=== PATIENT | male | born 1945 | race American Indian/Alaskan Native ===

== ENCOUNTER 2017-12-01 19:06 | Emergency (ER) | payer BC ==
[2017-12-01 19:52] VITALS: BP 129/84
--- NOTE | 2017-12-01 21:55 | XRay Report ---
FINAL REPORT EXAM: XR FOOT 2V LT HISTORY: pain in the left foot TECHNIQUE: AP and lateral portable views of the left foot PRIORS: None. FINDINGS: There is no evidence for acute fracture or dislocation. Soft tissue swelling over the lateral aspect of the 5th metatarsal is seen. No radiopaque foreign bodies are seen. Bony mineralization is normal. Joint spaces are maintained. Large bony spurs off the plantar and posterior aspects of the calcaneus is seen. Spurring off the dorsum of the tarsal bones is also noted. IMPRESSION: No acute bony abnormality noted. Soft tissue swelling is present laterally over the 5th metatarsal.
[2017-12-02] MEDS ORDERED: DECADRON IM ONE (03:40)
[2017-12-02] MEDS ORDERED: TORADOL IM ONE (03:40)
--- NOTE | 2017-12-02 03:42 | Emergency Department Report ---
HPI - General Chief Complaint: Extremity Injury, Lower Time Seen by Provider: 12/02/17 03:41 - HPI HPI: Patient reports that he's been having in got flareup for over a week now. He reports therapy to his left great toe and heel. He said he went to the urgent care 1 week ago and they placed him on pulseless seen and he had relief. He said they also put him on indomethacin but his primary care physician told him that he should not take that because he is diabetic and with high blood pressure. He said that gout got better and then E a 10 shrimp last night and got flared up again. Patient's here report pain to left great toe 9 out of 10 and throbbing. Reports redness and swelling. Patient said his doctor told him he can have a little seafood but he said that he doesn't know how much a little is. Pain is worse with movement and touch better with resting. He said he took some Motrin that did not relieve his pain. Denies any trauma to site. Patient said he has an appointment with his primary care physician on 2017. Denies any fever or chills. ED Past Medical Hx - Past Medical History Previous Medical History?: Yes Hx Hypertension: Yes Hx Diabetes: Yes Hx Arthritis: Yes Additional medical history: GOUT - Surgical History Past Surgical History?: No - Family History Family history: hypertension - Social History Smoking Status: Former Smoker Substance Use Type: None - Medications Home Medications: Home Medications Medication Instructions Recorded Confirmed Last Taken Type Colchicine [Colcrys] 0.6 mg PO BID PRN #10 tab 12/02/17 Unknown Rx predniSONE [Deltasone] 20 mg PO QAM 3 Days #3 tab 12/02/17 Unknown Rx ED Review of Systems ROS: Stated complaint: GOUT IN L FOOT Other details as noted in HPI Comment: All other systems reviewed and negative Constitutional: no symptoms reported Respiratory: no symptoms reported Cardiovascular: denies: chest pain, palpitations, dyspnea on exertion, edema, syncope, paroxysmal nocturnal dyspnea Gastrointestinal: denies: abdominal pain, nausea, vomiting Genitourinary: denies: dysuria, hematuria Musculoskeletal: joint swelling, arthralgia. denies: back pain, myalgia Skin: other (redness and swelling to the left great toe). denies: rash Neurological: denies: headache, weakness, numbness, paresthesias, confusion, abnormal gait, vertigo Physical Exam - Physical Exam Vital Signs: Vital Signs 12/01/17 19:47 Temperature 98.3 F Pulse Rate 93 H Respiratory 18 Rate Blood Pressure 129/84 O2 Sat by Pulse 96 Oximetry General: 72-year-old male well-nourished well-developed and nontoxic in appearance. Physical Exam: Head: Normocephalic, atraumatic, no abrasion, no bruising and no contusion. Eyes: Biateral pupils equal and reactive to light, bilateral EOM intact.. Bilateral conjunctival and sclera without injection, normal accommodation. No nystagmus Mouth: Moist, no pharyngeal exudate or erythema. No peritonsillar abscesses. Uvula is midline and oral airways patent. Neck: Supple, No Cervical adenopathy, full range of motion and no C-spine tenderness. No swelling or tracheal deviation normal reflexes Cardiovascular: S1, S2. Regular rate and rhythm. No murmur. Capillary refill is less then 3 seconds. Lungs: Clear to auscultate bilaterally. No rhonchi, wheezes or rales. No chest wall tenderness. No chest contusion. No bruising to chest. Abdomen: Non-tender to palpate in all quadrants, no guarding or rebound tenderness, positive bowel sounds in all quadrants. No CVA tenderness. No hernia, bruit or mass. No rigidity or distention. Extremities: No clubbing, cyanosis to extremities. Patient without edema to extremities except for left great toe with swelling and, redness and tenderness to palpate. Patient with full range of motion but reports pain with plantar flexion and dorsiflexion. No foot ulcers noted. +2 pulses. No neurovascular compromise. No bony tenderness Skin: Clean, dry and intact. Left great toe erythema with swelling. Psych: Normal mood and behavior ED Course Vital Signs 12/01/17 19:47 Temperature 98.3 F Pulse Rate 93 H Respiratory 18 Rate Blood Pressure 129/84 O2 Sat by Pulse 96 Oximetry - Reevaluation(s) Reevaluation #1: 12/01/17 Patient received Toradol 30 mg IM and 10 Mg IM. He Reports Relief of Pain. ED Medical Decision Making - Radiology Data Radiology results: report reviewed X-ray of left foot reveals no bony abnormality but soft tissue swelling seen. - Medical Decision Making ED course: Patient here complaining in got 2 within a week. He said he was treated one week ago and he got better but he ate shrimp last night and now he has a flare up to his great toe. Patient does have a primary care physician and said he has an appointment on 12/08/2017 to see primary care. Patient states that he took colchicine last week and he was given a prescription for indomethacin which his primary care physician told him not to take. Patient received Toradol 30 mg IM and Decadron 10 mg IM and emergency room. He was discharged home with prednisone 20 mg daily 3 days due to diabetic status and Colcrys. Patient educated on low purine diet and given print out from up-to- date on diet that is low in purine. Discharged home in stable condition to follow up with his primary care physician. Critical care attestation.: If time is entered above; I have spent that time in minutes in the direct care of this critically ill patient, excluding procedure time. ED Disposition Clinical Impression: Arthralgia of toe of left foot Acute gout Qualifiers: Gout site: toe Gout etiology: unspecified cause Laterality: left Qualified Code (s): M10.9 - Gout, unspecified Disposition: DC- TO HOME OR SELFCARE Is pt being admited?: No Does the pt Need Aspirin: No Condition: Stable Instructions: Arthralgia (ED), Acute Gouty Arthritis (ED), Low Purine Diet (ED) Additional Instructions: Please see diet that is low. Provided to you Take gout medication as prescribed Please primary care physician Increase water intake Prescriptions: Colchicine [Colcrys] 0.6 mg PO BID PRN #10 tab PRN Reason: gout flareup predniSONE [Deltasone] 20 mg PO QAM 3 Days #3 tab Referrals: TERESA FARRELL [Other] - 2-3 Days
[2017-12-02] MEDS ORDERED: DECADRON ONE (04:17)
[2017-12-02] MEDS ORDERED: TORADOL ONE (04:17)
== END 2017-12-02 04:45 | disposition home or self-care (01) ==
LOC: ED 19:06
DX: M10.9 Gout, unspecified (principal); I10 Essential (primary) hypertension; E11.9 Type 2 diabetes mellitus without complications; Z87.891 Personal history of nicotine dependence
CPT/HCPCS: 73620; 96372; 99283; J1100; J1885

== ENCOUNTER 2017-12-08 17:54 | Outpatient (CLI) | payer BC ==
--- NOTE | 2017-12-08 19:24 | XRay Report ---
FINAL REPORT PROCEDURE: XR SPINE LUMBOSACRAL 2-3V TECHNIQUE: Lumbar spine radiographs, including AP, lateral, and lumbosacral spot views. CPT 09249 HISTORY: HIP AND BACK PAIN COMPARISON: No prior studies are available for comparison. FINDINGS: No fractures visualized. There is mild anterior subluxation of L5 in relation S1, 3.7 millimeters. I suspect this is degenerative. I do not see evidence of spondylolysis. There is moderate to advanced facet arthritis inferiorly. Moderate degenerative changes also seen in the SI joints. Small marginal osteophytic spurs project throughout the lumbar spine. 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 There appears to be mild degenerative anterior subluxation L5 in relation S1. Moderate degenerative changes also noted in the SI joints..
--- NOTE | 2017-12-08 22:17 | XRay Report ---
FINAL REPORT PROCEDURE: XR HIPS BILAT 2V W/PELVIS TECHNIQUE: AP view of the pelvis and frog-leg view of the right and left hip were obtained.. HISTORY: HIP AND BACK PAIN COMPARISON: No prior studies are available for comparison. FINDINGS: No fracture or dislocation visualized. Mild degenerative changes visualized in both hips and in the symphysis pubis. Mild degenerative changes also seen in the SI joints. IMPRESSION: Mild degenerative changes present. No acute abnormalities are seen.
== END 2017-12-08 17:55 | disposition home or self-care (01) ==
LOC: XRAY 17:54
DX: M16.0 Bilateral primary osteoarthritis of hip (principal); M51.36 Other intervertebral disc degeneration, lumbar region; M47.896 Other spondylosis, lumbar region
CPT/HCPCS: 72100; 73521

== ENCOUNTER 2022-01-10 15:44 | Emergency (ER) | payer BC, MEDICARE ==
[2022-01-10 17:51] VITALS: BP 172/82
--- NOTE | 2022-01-10 18:21 | Emergency Department Report ---
Upper Extremity - HPI Chief Complaint: Extremity Injury, Upper Stated Complaint: SWOLLEN FINGER Upper Extremity: Right Ring Finger Occurred When: 2 Days Severity: Unable to Determine Symptoms: Yes Pain with Movement, Yes Limited Range of Movement, Yes Swelling, Yes Bruising/Ecchymosis, No Deformity, No Numbness, No Weakness, No Laceration or Abrasion Other History: 76-year-old black male with a past medical history of diabetes, hypertension, and prostate cancer presents to the emergency department for evaluation of right ring finger pain and swelling. He denies injury or trauma but states that he bites his fingernails. He denies fever or drainage from finger. ED Review of Systems ROS: Stated complaint: SWOLLEN FINGER Other details as noted in HPI Constitutional: denies: chills, fever Respiratory: denies: shortness of breath Cardiovascular: denies: chest pain, palpitations, dyspnea on exertion Musculoskeletal: denies: back pain ED Past Medical Hx - Past Medical History Previous Medical History?: Yes Hx Hypertension: Yes Hx Diabetes: Yes Hx Arthritis: Yes Additional medical history: GOUT - Surgical History Past Surgical History?: No - Social History Smoking Status: Never Smoker Substance Use Type: None - Medications Home Medications: Home Medications Medication Instructions Recorded Confirmed Last Taken Type Colchicine [Colcrys] 0.6 mg PO BID PRN #10 tab 12/02/17 Unknown Rx predniSONE [Deltasone] 20 mg PO QAM 3 Days #3 tab 12/02/17 Unknown Rx Sulfamethoxazole/Trimethoprim 1 each PO BID 7 Days #14 tab 01/10/22 Unknown Rx [Bactrim DS TAB] Upper Extremity Exam - Exam General: Vital signs noted. No distress. Alert and acting appropriately. Head and Torso: No HEENT Abnormality, No Neck Tenderness, No Chest/Lungs Abnormality, No Abdominal Tenderness, No Back Tenderness Shoulder Exam: No Shoulder Tenderness, No Clavicle Tenderness, No Normal Range of Motion in Shoulder Arm Exam: No Arm Deformity Elbow: Yes Normal Range of Motion in Elbow, No Elbow Tenderness Wrist: Yes Normal ROM in Wrist, No Wrist Tenderness Hand: Yes Hand Tenderness, Yes Digit Tenderness (Right ring finger), No Hand Deformity, No Normal ROM in Digit(s), No Digit(s) Deformity, No Tendon Dysfunction CMS Exam: Yes Normal Distal Pulses, Yes Normal Capillary Refill, Yes Normal Distal Sensation, No Broken Skin Hand L/R Back: 1 - Swelling and erythema noted around entire edge of fingernail with erythema noted up the finger. Entire finger noted to be swollen and warm. ED Course Vital Signs 01/10/22 17:44 Temperature 97.9 F Pulse Rate 62 Respiratory 18 Rate Blood Pressure 172/82 Blood Pressure 172/82 [Right] O2 Sat by Pulse 98 Oximetry - I & D Right Finger Type of Procedure: Simple Site: Right ring finger Blade Size: 18-gauge needle I & D Procedure: betadine prep Progress: After digital block of finger, finger was cleaned with Betadine prep then 18- gauge needle used to place a single needle stick and moderate amounts of purulent drainage noted. Area cleaned after finger expressed for more purulent drainage then Band-Aid applied. Patient tolerated well - Nerve Block Consent Obtained: verbal consent Time Out Performed: Yes Local Anesthetic Used: Lidocaine 1% Amount of anesthesia used: 3 Side: right Nerve Blocks: digital Procedure Successful: Yes Complications: none Patient Tolerated Procedure: well ED Medical Decision Making - Medical Decision Making 76-year-old black male with a past medical history of diabetes, hypertension, and prostate cancer presents to the emergency department for evaluation of right ring finger pain and swelling. He denies injury or trauma but states that he bites his fingernails. He denies fever or drainage from finger. Right index finger exam noted to be consistent with paronychia. Incision and drainage completed on paronychia poor procedure note after digital block. Entire right ring finger noted to be swollen with erythema and patient has history of diabetes, so he will be discharged home with 7-day course of Bactrim and naproxen. He is advised to take medications as prescribed and follow-up with primary care provider if no improvement or worsening symptoms. He was advised to return to the emergency department for any signs of worsening infection. He verbalized understanding of and agreement with plan of care. Critical care attestation.: If time is entered above; I have spent that time in minutes in the direct care of this critically ill patient, excluding procedure time. ED Disposition Clinical Impression: Paronychia of right ring finger Disposition: HOME / SELF CARE / HOMELESS Is pt being admited?: No Does the pt Need Aspirin: No Condition: Stable Instructions: Paronychia, [id number] Additional Instructions: Take medications as prescribed. Follow-up with primary care provider if no improvement or worsening symptoms. Prescriptions: Sulfamethoxazole/Trimethoprim [Bactrim DS TAB] 1 each PO BID 7 Days #14 tab Referrals: KYLIE BEYER MD [Referring] - 3-5 Days Time of Disposition: 18:21
== END 2022-01-10 18:56 | disposition home or self-care (01) ==
LOC: ED 15:44
DX: L03.011 Cellulitis of right finger (principal); I10 Essential (primary) hypertension; E11.9 Type 2 diabetes mellitus without complications; M19.90 Unspecified osteoarthritis, unspecified site
CPT/HCPCS: 99282

== ENCOUNTER 2022-03-01 11:52 | Emergency (ER) | payer SELFPAY ==
[2022-03-01 21:13] VITALS: BP 156/99
[2022-03-01] MEDS ORDERED: diazePAM 5 MG TAB PO ONE (21:13)
[2022-03-01] MEDS ORDERED: KETOROLAC 30 MG/1 ML INJ IM ONE (21:13)
[2022-03-01] MEDS ORDERED: dexAMETHasone 20 MG/5 ML VIAL IM ONE (21:13)
--- NOTE | 2022-03-01 21:30 | Emergency Department Report ---
ED Neck Pain/Injury HPI - General Chief Complaint: Neck Pain/Injury Stated Complaint: NECK PAIN Mode of arrival: Ambulatory Limitations: No Limitations - History of Present Illness Initial Comments: Patient is a 76-year-old -[place] male with a history of hypertension, [id number] diabetes, chronic osteoarthritis and gouty arthropathy who presents to the ED with complaint of acute onset persistent right lateral cervical muscle strain and pain with limited range of motion after he slept on the couch and strained his neck about 3 days ago. Patient states that the pain has been constant and persistent and that he is unable to perform any active range of motion with the neck because of worsening pain. Patient denies chest pain, shortness of breath, dizziness, syncope, nausea and vomiting, headache, dysphagia, dysphonia, numbness and tingling or weakness of upper extremities bilaterally or diaphoresis, change in vision and speech changes. MD Complaint: neck pain (right lateral neck pain) -: days(s) (3) Place: home Radiation: right lateral, right shoulder Severity: severe Severity scale (0 -10): 7 Quality: sharp, aching Consistency: constant Improves With: none Worsens With: movement of neck Context: other (slept on the couch) Associated Symptoms: none. denies: headache, fever, tingling, weakness, vertigo, difficulty walking, swollen glands, difficulty swallowing, nausea, vomiting Treatments Prior to Arrival: Acetaminophen - Related Data Previous Rx's Medication Instructions Recorded Last Taken Type Colchicine [Colcrys] 0.6 mg PO BID PRN #10 tab 12/02/17 Unknown Rx Sulfamethoxazole/Trimethoprim 1 each PO BID 7 Days #14 tab 01/10/22 Unknown Rx [Bactrim DS TAB] Naproxen 500 mg PO Q12H PRN #30 tab 03/01/22 Unknown Rx methOCARBAMOL [Robaxin TAB] 500 mg PO Q12H PRN #30 tab 03/01/22 Unknown Rx predniSONE [Deltasone] 40 mg PO QAM 3 Days #10 tab 03/01/22 Unknown Rx traMADoL [Ultram] 50 mg PO Q6HR PRN #12 tablet 03/01/22 Unknown Rx Allergies Allergy/AdvReac Type Severity Reaction Status Date / Time No Known Allergies Allergy Verified 03/01/22 21:14 ED Review of Systems ROS: Stated complaint: NECK PAIN Other details as noted in HPI Constitutional: denies: chills, fever Eyes: denies: eye pain, eye discharge, vision change ENT: denies: ear pain, throat pain Respiratory: denies: cough, shortness of breath, wheezing Cardiovascular: denies: chest pain, palpitations Endocrine: no symptoms reported Gastrointestinal: denies: abdominal pain, nausea, diarrhea Genitourinary: denies: urgency, dysuria Musculoskeletal: arthralgia (Right lateral neck pain). denies: back pain, joint swelling Skin: denies: rash, lesions Neurological: denies: headache, weakness, paresthesias Psychiatric: denies: anxiety, depression Hematological/Lymphatic: denies: easy bleeding, easy bruising ED Past Medical Hx - Past Medical History Hx Hypertension: Yes Hx Diabetes: Yes Hx Arthritis: Yes Additional medical history: GOUT - Social History Smoking Status: Never Smoker Substance Use Type: None - Medications Home Medications: Home Medications Medication Instructions Recorded Confirmed Last Taken Type Colchicine [Colcrys] 0.6 mg PO BID PRN #10 tab 12/02/17 03/01/22 Unknown Rx Sulfamethoxazole/Trimethoprim 1 each PO BID 7 Days #14 tab 01/10/22 03/01/22 Unknown Rx [Bactrim DS TAB] Naproxen 500 mg PO Q12H PRN #30 tab 03/01/22 Unknown Rx methOCARBAMOL [Robaxin TAB] 500 mg PO Q12H PRN #30 tab 03/01/22 Unknown Rx predniSONE [Deltasone] 40 mg PO QAM 3 Days #10 tab 03/01/22 Unknown Rx traMADoL [Ultram] 50 mg PO Q6HR PRN #12 tablet 03/01/22 Unknown Rx ED Physical Exam - General Limitations: No Limitations General appearance: alert, in no apparent distress - Head Head exam: Present: atraumatic, normocephalic, normal inspection - Eye Eye exam: Present: normal appearance, PERRL, EOMI Pupils: Present: normal accommodation - ENT ENT exam: Present: normal exam, normal orophraynx, mucous membranes moist, TM's normal bilaterally, normal external ear exam - Neck Neck exam: Present: tenderness (Palpable right lateral sternocleidomastoid muscle tenderness with limited range of motion due to pain). Absent: full ROM (Limited range of motion due to pain) - Respiratory Respiratory exam: Present: normal lung sounds bilaterally. Absent: respiratory distress, wheezes, rales, rhonchi, chest wall tenderness, accessory muscle use, decreased breath sounds - Cardiovascular Cardiovascular Exam: Present: regular rate, normal rhythm, normal heart sounds. Absent: systolic murmur, diastolic murmur, rubs, gallop - GI/Abdominal GI/Abdominal exam: Present: soft, normal bowel sounds. Absent: tenderness, guarding, hyperactive bowel sounds, hypoactive bowel sounds, organomegaly, mass - Extremities Exam Extremities exam: Present: normal inspection, full ROM, normal capillary refill. Absent: tenderness, pedal edema, joint swelling, calf tenderness - Back Exam Back exam: Present: normal inspection, full ROM. Absent: tenderness, CVA tenderness (R), CVA tenderness (L), muscle spasm, paraspinal tenderness, vertebral tenderness - Neurological Exam Neurological exam: Present: alert, oriented X3, CN II-XII intact, normal gait, reflexes normal - Psychiatric Psychiatric exam: Present: normal affect, normal mood - Skin Skin exam: Present: warm, dry, intact, normal color. Absent: rash ED Course Vital Signs 03/01/22 03/01/22 12:45 21:11 Temperature 97.8 F 98.9 F Pulse Rate 68 73 Respiratory 20 20 Rate Blood Pressure 150/70 Blood Pressure 156/99 [Right] O2 Sat by Pulse 96 100 Oximetry ED Medical Decision Making - Medical Decision Making This is a 76-year-old -[place] male with a history of hypertension, [id number] diabetes, chronic osteoarthritis and gouty arthropathy who presents to the ED with complaint of acute onset persistent right lateral cervical muscle strain and pain with limited range of motion after he slept on the couch and strained his neck about 3 days ago. Patient states that the pain has been constant and persistent and that he is unable to perform any active range of motion with the neck because of worsening pain. In the ED, patient is alert and oriented x3 and is not in any distress. Patient was treated for pain in the ED. Patient was discharged home on medications for pain and advised to follow-up with his primary care physician in 7 to 10 days for reevaluation or return to the ED immediately if symptoms get worse. - Differential Diagnosis Cervical strain; torticollis; muscle strain; muscle spasm; Critical care attestation.: If time is entered above; I have spent that time in minutes in the direct care of this critically ill patient, excluding procedure time. ED Disposition Clinical Impression: Right torticollis, Strain of cervical portion of right trapezius muscle Strain of sternocleidomastoid muscle Qualifiers: Encounter type: initial encounter Qualified Code(s): S16.1XXA - Strain of muscle, fascia and tendon at neck level, initial encounter Disposition: HOME / SELF CARE / HOMELESS Is pt being admited?: No Does the pt Need Aspirin: No Condition: Stable Instructions: Muscle Strain, [id number], Cervical Sprain, Cervical Strain and Sprain Rehab-SportsMed, Acute Torticollis, Adult Additional Instructions: Your symptoms are likely due to muscle strain of right lateral neck area. Th erefore take medication with food, drink plenty of fluids, follow-up with your primary care physician in 7 to 10 days for reevaluation. Return to the ED immediately if symptoms get worse. Prescriptions: predniSONE [Deltasone] 40 mg PO QAM 3 Days #10 tab Naproxen 500 mg PO Q12H PRN #30 tab PRN Reason: Pain , Severe (7-10) methOCARBAMOL [Robaxin TAB] 500 mg PO Q12H PRN #30 tab PRN Reason: Muscle Spasm traMADoL [Ultram] 50 mg PO Q6HR PRN #12 tablet PRN Reason: Pain Referrals: [facility] [Provider Group] - 7-10 days Time of Disposition: 21:31 Print Language: TURKMEN
== END 2022-03-01 21:43 | disposition home or self-care (01) ==
LOC: ED 11:52
DX: S16.1XXA Strain of muscle, fascia and tendon at neck level, initial encounter (principal); X58.XXXA Exposure to other specified factors, initial encounter; Y93.89 Activity, other specified; Y92.89 Other specified places as the place of occurrence of the external cause; Y99.8 Other external cause status; M43.6 Torticollis
CPT/HCPCS: 96372; 99282; J1100; J1885